=== PATIENT | female | born 1990 | race Two or more races ===

== ENCOUNTER 2021-01-14 14:44 | Emergency (ER) | payer SELFPAY ==
[~2021-01-14] VITALS: Ht 147.3 cm; Wt 69.9 kg
[2021-01-14 15:36] VITALS: BP 114/69
[2021-01-14 15:48] LABS: Urine Bacteria FEW /hpf (None Seen); Urine Blood Negative /uL (Negative); Urine Mucus FEW (None Seen); Urine Specific Gravity 1.016 (1.001-1.035); Urine WBC 9 /hpf (0 - 5)
== END 2021-01-14 16:16 | disposition home or self-care (01) ==
LOC: ER 14:44
DX: N39.0 Urinary tract infection, site not specified (principal); R51.9 Headache, unspecified
CPT/HCPCS: 81001; 81025

== ENCOUNTER 2021-04-07 16:13 | Emergency (ER) | payer MEDICAID ==
[~2021-04-07] VITALS: Ht 157.5 cm; Wt 54.4 kg
[2021-04-07] MEDS ORDERED: SODIUM CHLORIDE 0.9% 1,000 ML IVB ONE (16:30)
[2021-04-07] MEDS ORDERED: ONDANSETRON HCL 4 MG/2 ML VIAL IV ONE (16:30)
[2021-04-07] MEDS ORDERED: MORPHINE SULFATE 4 MG/ML SYR/VIAL IV ONE (16:30)
[2021-04-07 16:58] LABS: Basophils # (auto) 0 10 ^3/uL (0-0.2); Basophils % (auto) 0.5 % (0.0-2.0); Eosinophils # (auto) 0.1 10 ^3/uL (0-0.8); Hemoglobin 10.5 g/dL (12.2-16.2); Lymphocytes # (auto) 1.5 10 ^3/uL (0.4-5.4); Monocytes # (auto) 0.7 10 ^3/uL (0-1.3); Monocytes % (auto) 9.5 % (0.0-12.0)
[2021-04-07 17:00] LABS: Eosinophils % (auto) 0.9 % (0.0-7.0); Hematocrit 31.6 % (36.0-46.0); Lymphocytes % (auto) 20.3 % (10.0-50.0); Mean Corpuscular Hemoglobin 25.2 pg (28.0-32.0); Mean Corpuscular Hgb Conc. 33.3 g/dL (32.0-36.0); Mean Corpuscular Volume 75.6 fL (80.0-100.0); Neutrophils # (auto) 5.1 10 ^3/uL (1.6-8.6); Neutrophils % (auto) 68.8 % (37.0-80.0); Red Blood Cells 4.17 10^6/uL (4.0-5.20); White Blood Cell 7.4 10^3/uL (4.4-10.8)
[2021-04-07 17:03] VITALS: BP 155/56
[2021-04-07 17:07] LABS: Urine Bacteria NONE SEEN /hpf (None Seen); Urine Blood 3+ /uL (Negative); Urine Mucus FEW (None Seen); Urine WBC 41 /hpf (0 - 5)
[2021-04-07] MEDS ORDERED: cefTRIAXone 1GM/50ML D5W 50 ML IV ONE (17:30)
[2021-04-07 17:32] LABS: Albumin 4.1 g/dL (3.4-5.0); Calcium 8.5 mg/dL (8.5-10.1)
[2021-04-07 17:35] LABS: BUN/Creatinine Ratio 16.9; Bilirubin, Total 0.4 mg/dL (0.2-1.0); Total Protein 7.4 g/dL (6.4-8.2)
== END 2021-04-07 18:28 | disposition home or self-care (01) ==
LOC: ER 16:13
DX: N39.0 Urinary tract infection, site not specified (principal); Z32.02 Encounter for pregnancy test, result negative
CPT/HCPCS: 36415; 74176; 80053; 81001; 81025; 83690; 85025; 96361; 96365; 96375; 99284; J0696; J2270; J2405; J7030

== ENCOUNTER 2021-11-28 13:13 | Emergency (ER) | payer MEDICAID ==
[~2021-11-28] VITALS: Ht 154.9 cm; Wt 49.4 kg
[2021-11-28 14:29] LABS: Basophils # (auto) 0.1 10 ^3/uL (0-0.2); Basophils % (auto) 0.8 % (0.0-2.0); Eosinophils # (auto) 0.1 10 ^3/uL (0-0.8); Eosinophils % (auto) 1.1 % (0.0-7.0); Hematocrit 38.1 % (36.0-46.0); Hemoglobin 12.5 g/dL (12.2-16.2); Lymphocytes # (auto) 1.6 10 ^3/uL (0.4-5.4); Lymphocytes % (auto) 25.1 % (10.0-50.0); Mean Corpuscular Hemoglobin 26.4 pg (28.0-32.0); Mean Corpuscular Hgb Conc. 32.8 g/dL (32.0-36.0); Mean Corpuscular Volume 80.5 fL (80.0-100.0); Monocytes # (auto) 0.4 10 ^3/uL (0-1.3); Monocytes % (auto) 6.5 % (0.0-12.0); Neutrophils # (auto) 4.3 10 ^3/uL (1.6-8.6); Neutrophils % (auto) 66.5 % (37.0-80.0); Nucleated Red Blood Cells % 0.1 %; Red Blood Cells 4.74 10^6/uL (4.0-5.20); Red Cell Distribution Width 15.5 % (11.8-14.3); White Blood Cell 6.5 10^3/uL (4.4-10.8)
[2021-11-28 14:41] LABS: Albumin 4.3 g/dL (3.4-5.0); BUN/Creatinine Ratio 29.8; Calcium 9.2 mg/dL (8.5-10.1); Potassium 4.3 mmol/L (3.5-5.1)
[2021-11-28 14:45] LABS: Bilirubin, Total 0.6 mg/dL (0.2-1.0); Total Protein 7.2 g/dL (6.4-8.2)
[2021-11-28] MEDS ORDERED: IOHEXOL 350 MG/ML 100ML IJ ONE (15:19)
[2021-11-28 16:17] VITALS: BP 116/56
[2021-11-28] MEDS ORDERED: AMOX500T86 PO (16:24)
== END 2021-11-28 16:29 | disposition home or self-care (01) ==
LOC: ER 13:13
DX: R09.1 Pleurisy (principal)
CPT/HCPCS: 36415; 71045; 71275; 80053; 83880; 84484; 85025; 99285; Q9967

== ENCOUNTER 2022-03-10 20:17 | Emergency (ER) | payer MEDICAID ==
[~2022-03-10] VITALS: Ht 154.9 cm; Wt 47.6 kg
[2022-03-10 20:17] VITALS: BP 114/68
[~2022-03-10 20:17] MED LIST: AMOX500T86 PO
== END 2022-03-11 01:49 | disposition left against medical advice (07) ==
LOC: ER 20:19
DX: R05.9 Cough, unspecified (principal); J02.9 Acute pharyngitis, unspecified; R50.9 Fever, unspecified; R51.9 Headache, unspecified; M79.10 Myalgia, unspecified site; Z53.21 Procedure and treatment not carried out due to patient leaving prior to being seen by health care provider

== ENCOUNTER 2024-11-23 15:49 | Inpatient (IN) | payer MEDICAID ==
[~2024-11-23] VITALS: Ht 154.9 cm; Wt 50.6 kg
--- NOTE | 2024-11-23 16:46 | ED.PDOC ---
General HPI Comments YANELY: HPI: Poor Historian. 34-year-old female presents to emergency department for persistent UTI symptoms. Patient stated she had these symptoms for at least two weeks ago and was prescribed antibiotics Bactrim which she completed the course three days ago. Patient continues to complain of right flank pain and lower abdominal pain and burning with urination increased in frequency. Patient has history of kidney stones. Pain is constant. No alleviating or precipitating factors. Patient's saw her urologist few days ago and she had an outpatient CT scan of the abdomen and pelvis without contrast today. She brought her CD with her. The CT does not have the report in it but only the images. We are requesting the facility to fax us the report. Initial Vital Signs: Temp : 98.4 BP:122/70 HR: 73 RR:18 SpO2: 99 Past Medical History: UROLITHIASIS Past Surgical History: Gallbladder, , ovarian cyst removal. Social History: Denies smoking, ETOH, or drug use. Medications: DENIES ANY Allergies: NKDA REVIEW OF SYSTEMS: CONSTITUTIONAL: Denies acute: fever, diaphoresis, chills, generalized weakness. HEAD: Denies acute: headache, photophobia Eyes: Denies acute: Double vision, vision loss, eye pain, eye discharge. EARS: Denies acute: tinnitus, hearing loss, ear discharge, ear pain, THROAT: Denies acute: sore throat, swelling, difficulty swallowing , pain with swallowing, change in voice. NECK: Denies acute: neck pain, neck swelling, stiff neck. HEART: Denies acute : chest pain, palpitations, LUNGS: Denies acute: SOB, wheezing, cough, hemoptysis ABDOMEN: Denies acute: Nausea, Vomiting, diarrhea, melena , hematemesis, hematochezia SKIN: Denies acute: rash, redness, lesions, itchiness. EXTREMITIES: Denies acute: calf pain, numbness, tingling, weakness, denies pain in extremity. Denies acute: Low back pain. Neuro: Denies acute: focal neurological deficit, motor or sensory focal neurological deficit, tremors, seizure like activity, confusion, dizziness, change in mental status, loss of bowel or bladder function, cauda equina like symptoms. : Denies acute: , hematuria, PSYCH: Denies acute: hallucination, suicidal ideation, homicidal ideation. FEMALE: Denies acute: abnormal vaginal bleeding, foul odor, unusual discharge. PHYSICAL EXAM: General: no acute distress, awake and alert. Head: normocephalic, atraumatic. Neck: supple, trachea is midline, no swelling. Throat: Normal phonation. Eyes:, no erythema, no purulent discharge, no proptosis, no icterus. Heart: regular rate, regular rhythm, no significant murmur appreciated. Lungs: no apparent respiratory distress, Able to speak in full sentences. No wheezing, no rhonchi, no crackles. No stridors Clear to auscultation bilaterally. Abdomen: Nonspecific right-sided tender to palpation, non distended, soft, no guarding, no rebound, + bowel sounds. Neuro: Awake, Alert, oriented to name, self, situation, follows commands GCS=15. Speech is normal. Skin: no petechia, no purpura, no cyanosis, non-pale, not jaundice. Lower extremities: --no - Pitting edema no deformity, no focal swelling, no calf TTP. Makes eye contact. moves all four extremities. Face: no apparent facial droop. Right CVA tenderness to percussion . Ambulating in the ED independently. ED COURSE: Chief Complaint: Urinary Time Seen by MD: 16:30 Reviewed notes: Nurses Notes, Medications, Allergies Allergies: Coded Allergies: NO KNOWN ALLERGIES (Unverified , 04/07/21) Home Meds Active Scripts Amoxicillin & Pot Clavulanate (Augmentin) 500 Mg Tab, 1 TAB PO BID for 7 Days, #14 TAB Prov:AMBER BRAR MD 11/28/21 Reported Medications Hydralazine Hcl (Hydralazine Hcl) 25 Mg Tab, 25 MG PO for 30 Days, MG 11/24/24 Information Source: Patient Mode of Arrival: Ambulatory Was a procedure done? Was a procedure done?: No Differential Diagnosis Kidney stone (Female): Pyelonephritis, Urinary obstruction, Urolithiasis, Other (Flank Pain;DDX include Nephrolethiasis, obstructive uropathy, kidney cancer, renal infarct, intraabdominal neoplasm, lower lobe pneumonia, retroperitoneal hemorrhage, pancreatitis, aneurysm, dissection, musculoskeletal, rib contusion/trauma, hematoma, PYLONEPHRITIS, muscle strain, spinal disease. IN A FEMALE) Penile/Scrotal: N/A Urinary Problem (Female): Pyelonephritis, Urinary retention, Urolithiasis, UTI, Vaginitis X-Ray, Labs, Meds, VS Vital Signs Date Time Temp Pulse Resp B/P (MAP) Pulse Ox O2 Delivery O2 Flow Rate FiO2 11/23/24 19:40 Room Air* 0 21 11/23/24 19:35 98.3 85 16 125/73 (90) 98 98.3 11/23/24 17:03 98.3 74 16 115/66 (82) 99 98.3 11/23/24 17:03 74 16 99 Room Air* 0 21 11/23/24 16:14 98.4 73 18 122/70 (87) 99 Lab Test 11/23/24 16:30 11/23/24 16:11 Range/Units White Blood Count 7.2 4.4-10.8 10^3/uL Red Blood Count 4.57 4.0-5.20 10^6/uL Hemoglobin 11.8 L 12.2-16.2 g/dL Hematocrit 36.6 36.0-46.0 % Mean Corpuscular Volume 80.0 80.0-100.0 fL Mean Corpuscular Hemoglobin 25.8 L 28.0-32.0 pg Mean Corpuscular Hemoglobin Concent 32.3 32.0-36.0 g/dL Red Cell Distribution Width 14.5 H 11.8-14.3 % Platelet Count 242 140-450 10^3/uL Mean Platelet Volume 9.2 6.9-10.8 fL Neutrophils (%) (Auto) 72.0 37.0-80.0 % Lymphocytes (%) (Auto) 22.4 10.0-50.0 % Monocytes (%) (Auto) 4.4 0.0-12.0 % Eosinophils (%) (Auto) 0.4 0.0-7.0 % Basophils (%) (Auto) 0.8 0.0-2.0 % Neutrophils # (Auto) 5.2 1.6-8.6 10 ^3/uL Lymphocytes # (Auto) 1.6 0.4-5.4 10 ^3/uL Monocytes # (Auto) 0.3 0-1.3 10 ^3/uL Eosinophils # (Auto) 0 0-0.8 10 ^3/uL Basophils # (Auto) 0.1 0-0.2 10 ^3/uL Nucleated Red Blood Cells 0.2 % Sodium Level 140 136-145 mmol/L Potassium Level 3.7 3.5-5.1 mmol/L Chloride Level 105 98-107 mmol/L Carbon Dioxide Level 25 20-31 mmol/L Anion Gap 10 5-15 Blood Urea Nitrogen 10 9-23 mg/dL Creatinine 0.60 0.550-1.02 mg/dL Glomerular Filtration Rate Calc 120 >90 mL/min BUN/Creatinine Ratio 16.7 10.0-20.0 Serum Glucose 92 74-106 mg/dL Lactic Acid Level 0.8 0.4-2.0 mmol/L Calcium Level 10.5 H 8.7-10.4 mg/dL Magnesium Level 2.0 1.6-2.6 mg/dL Total Bilirubin 0.5 0.2-1.0 mg/dL Aspartate Amino Transferase (AST) 9 L 13-40 U/L Alanine Aminotransferase (ALT) 12 7-40 U/L Alkaline Phosphatase 51 46-116 U/L Troponin I High Sensitivity < 3 L </=34 ng/L Total Protein 7.6 5.7-8.2 g/dL Albumin 5.3 H 3.2-4.8 g/dL Lipase 40 12-53 U/L Thyroid Stimulating Hormone (TSH) 0.92 0.55-4.78 uIU/mL Urine Color Colorless Yellow Urine Clarity Clear Clear Urine pH 5.5 5.0-9.0 Urine Specific [place] 1.012 1.001-1.035 Urine Protein Negative Negative Urine Ketones Negative Negative Urine Blood Negative Negative /uL Urine Nitrite Negative Negative Urine Bilirubin Negative Negative Urine Urobilinogen Normal Negative mg/dL Urine Leukocyte Esterase 1+ Negative /uL Urine RBC 1 0 - 4 /hpf Urine Microscopic WBC 5 0-5 /HPF Urine Squamous Epithelial Cells Few <5 /hpf Urine Bacteria Few H None Seen /hpf Urine Glucose Normal Normal mg/dL Urine Test Negative Negative Urine Opiates Screen Neg NEGATIVE Urine Fentanyl Screen Neg NEGATIVE Urine Barbiturates Screen Neg NEGATIVE Urine Phencyclidine Screen Neg NEGATIVE Urine Amphetamines Screen Neg NEGATIVE Urine Benzodiazepines Screen Neg NEGATIVE Urine Cocaine Screen Neg NEGATIVE Urine Cannabinoids Screen Neg NEGATIVE Current Medications Medications (Trade) Dose Ordered Sig/Alex Route Start Time Stop Time Status Last Admin Sodium Chloride 1,000 ml @ 1,000 mls/hr Q1H ONCE IV 11/23/24 16:30 11/23/24 17:29 DC 11/23/24 16:55 Ceftriaxone Sodium 50 ml @ 100 mls/hr ONCE ONCE IV 11/23/24 16:30 11/23/24 16:59 DC 11/23/24 16:55 Acetaminophen/ Hydrocodone Bitart ([place] 5/325MG Tab) 1 tab ONCE ONCE PO 11/23/24 17:00 11/23/24 17:01 DC 11/23/24 17:00 Ketorolac Tromethamine (Toradol Injection) 30 mg ONCE ONCE IV 11/23/24 19:45 11/23/24 19:46 DC 11/23/24 19:54 Pantoprazole Sodium (Protonix Tablet) 40 mg ONCE ONCE PO 11/23/24 20:30 11/23/24 20:31 DC 11/23/24 20:48 Lidocaine HCl (Xylocaine 2% Viscous) 10 ml ONCE ONCE PO 11/23/24 20:30 11/23/24 20:31 DC 11/23/24 20:48 Sucralfate (Carafate Tab) 1 gm ONCE ONCE PO 11/23/24 20:30 11/23/24 20:31 DC 11/23/24 20:48 [place] [id number] Ph: [phone] DIAGNOSTIC IMAGING Diagnostic Imaging Report : [id number] Signed PATIENT: URSZULA [place] ACCT: [id number] UNIT: [id number] : 1990 LOC: OVERFLOW ROOM / BED: [address] [place] [address] / AGE / SEX: 34 / F ADM STATUS: ADM IN SERVICE 25 ORDERING PHYSICIAN: ORIANA DENG DO PROCEDURE(s): ABPLIV - CT AB PEL WITH IV CON ONLY REASON: epig. R flank, abd pain ORDER NUMBER(s): [id number], ACCESSION NUMBER(s): [id number] Exam: CT AB PEL WITH IV CON ONLY History: epig. R flank, abd pain Comparison Study: None Contrast: Type of contrast: Contrast injected: Contrast wasted: 0 TECHNIQUE: Multidetector CT of abdomen and pelvis with IV contrast. Radiation Dose Information: CT Dose: CTDI volume is 5.42 mGy. Dose-length product is 296.06 mGy*cm FINDINGS: Visualized breast tissue is symmetric. Lung bases are clear. Heart size is normal lower esophagus is unremarkable. Spleen, liver, pancreas, kidneys, adrenals are unremarkable. Patient has had a cholecystectomy there is an enlarged and edematous appearing right ovary measures 4.55 by 3.2 cm . Right ovary is dominated by ovarian cyst. There is also large amount of stool in the rectosigmoid no evidence for obstruction.. IMPRESSION: 1. Enlarged right ovary and prominent right ovarian cyst. Follow-up ultrasound examination or MRI examination is suggested further assessment ATED BY: VENANCIO JACKSON MD DICTATED DATE/TIME: 11/23/242305 SIGNED BY: VENANCIO JACKSON MD SIGNED DATE/TIME: 11/23/242305 CC: [place] [id number] Ph: [phone] DIAGNOSTIC IMAGING Diagnostic Imaging Report : [id number] Signed PATIENT: URSZULA [place] ACCT: [id number] UNIT: [id number] : 1990 LOC: OVERFLOW ROOM / BED: [address] [place] [address] AGE / SEX: 34 / F ADM STATUS: ADM IN SERVICE 0050 ORDERING PHYSICIAN: LOUISE COPELAND RESIDENT PROCEDURE(s): PELUS - PELVIC REASON: r/o ovarian torsion ORDER NUMBER(s): [id number], ACCESSION NUMBER(s): [id number] INDICATION: r/o ovarian torsion TECHNIQUE: Multiple real-time grayscale transabdominal sonographic images along with color and duplex Doppler of the uterus and ovaries were obtained. COMPARISON: None FINDINGS: The uterus measures 8.2 X 4.6 X 4.5 cm. The endometrial stripe measures 0.3 cm. Right ovary measures 4.2 X 3.3 X 3.8 cm with normal Doppler color flow. 2.9 X 2.2 X 2.9 CM PROBABLY PHYSIOLOGICAL CYST. Left ovary IS SURGICALLY REMOVED. IMPRESSION: 1. Grossly unremarkable pelvic ultrasound. NO SONOGRAPHIC EVIDENCE OF RIGHT OVARIAN TORSION. ATED BY: DAVE JORDAN MD DICTATED DATE/TIME: 11/24/24199 SIGNED BY: DAVE JORDAN MD SIGNED DATE/TIME: 11/24/24199 CC: Time of 1ST Reevaluation: 17:00 Reevaluation 1ST: Unchanged Patient Education/Counseling: Diagnosis, Treatment Family Education/Counseling: No Family Present Comments Patient presented with the above HPI.---flank pain/abdominal pain/UTI ---workup was initiated. patient was found with the above mentioned diagnosis. the following medications were ordered: please refer to order lists of meds and tests obtained by myself Dr. Deng. Patient ED course and VS have been stabilized. Patient has been reassessed in the ED and remained in a stable condition. Pertinent incidental findings were discussed with the patient and/or family. Patient/family voices understanding and is agreeable with plan. Patient has been observed in the ED adequate length of time to insure improvement/stability. Escalation of care considered: Consideration of escalation to observation or admission Patient was ADMITTED to the medicine team for further evaluation and treatment of their presentation. Who were unable to obtain the CT scan report that she had done prior to arrival to ED today. Patient was consented for a 2nd CT scan with IV contrast. All the reports of any imaging studies that were ordered by myself were reviewed by myself. Departure 1 Departure Time of Disposition: 18:17 Impression: Primary Impression: UTI (urinary tract infection) Additional Impressions: Flank pain Ovarian cyst Disposition: ADMITTED INPATIENT Admit to: Tele Condition: Guarded Discharged With: Self Critical Care Note Critical Care Time?: Yes (45 min-critical care time only) Heart Score Heart Score: Heart Score Response (Comments) Value History N/A 0 EKG N/A 0 Age N/A 0 Risk Factors N/A 0 Troponin N/A 0 Total 0 I personally scribed for ORIANA DENG DO ([email or web address]) on 11/23/24 at 16:46. Electronically submitted by Floresita Shelodn ([email or web address]). I personally scribed for ORIANA DENG DO ([email or web address]) on 11/23/24 at 17:33. Electronically submitted by Floresita Sheldon ([email or web address]). I personally scribed for ORIANA DENG DO ([email or web address]) on 11/23/24 at 17:35. Electronically submitted by Floresita Sheldon ([email or web address]). I personally scribed for ORIANA DENG DO ([email or web address]) on 11/23/24 at 18:21. Electronically submitted by Floresita Sheldon ([email or web address]). I personally scribed for ORIANA DENG DO ([email or web address]) on 11/24/24 at 02:12. El ectronically submitted by Fabian Mata ([email or web address]). I personally scribed for ORIANA DENG DO ([email or web address]) on 11/24/24 at 02:51. Electronically submitted by Fabian Mata ([email or web address]). ORIANA DENG DO Nov 23, 2024 16:46
[2024-11-23] MEDS: SODIUM CHLORIDE 0.9% 1,000 ML IV ONE (16:55)
[2024-11-23] MEDS: cefTRIAXone 1GM/50ML D5W 50 ML IV ONE (16:55)
[2024-11-23] MEDS: HYDROcodone-ACET 5/325MG TAB PO ONE (17:00)
[2024-11-23 17:03] VITALS: PULSE 74; RESP 16; O2SAT 99
[2024-11-23 17:06] LABS: Urine Bacteria FEW /hpf (None Seen); Urine Blood Negative /uL (Negative); Urine Clarity Clear (Clear); Urine Color Colorless (Yellow); Urine Protein, UAD Negative (Negative); Urine Specific Gravity 1.012 (1.001-1.035); Urine Squamous Epithelial Cell FEW /hpf (<5); Urine Urobilinogen Normal (Negative); Urine WBC 5 /HPF (0-5); Urine pH 5.5 (5.0-9.0)
[2024-11-23 18:05] LABS: Basophils # (auto) 0.1 10 ^3/uL (0-0.2); Basophils % (auto) 0.8 % (0.0-2.0); Eosinophils # (auto) 0 10 ^3/uL (0-0.8); Eosinophils % (auto) 0.4 % (0.0-7.0); Hematocrit 36.6 % (36.0-46.0); Hemoglobin 11.8 g/dL (12.2-16.2); Lymphocytes # (auto) 1.6 10 ^3/uL (0.4-5.4); Lymphocytes % (auto) 22.4 % (10.0-50.0); Mean Corpuscular Hemoglobin 25.8 pg (28.0-32.0); Mean Corpuscular Hgb Conc. 32.3 g/dL (32.0-36.0); Monocytes # (auto) 0.3 10 ^3/uL (0-1.3); Monocytes % (auto) 4.4 % (0.0-12.0); Neutrophils # (auto) 5.2 10 ^3/uL (1.6-8.6); Nucleated Red Blood Cells % 0.2 %; Platelet Count (auto) 242 10^3/uL (140-450); Red Blood Cells 4.57 10^6/uL (4.0-5.20); Red Cell Distribution Width 14.5 % (11.8-14.3); White Blood Cell 7.2 10^3/uL (4.4-10.8)
[2024-11-23 18:21] LABS: Alanine Aminotransferase 12 U/L (7-40); Alkaline Phosphatase 51 U/L (46-116); Anion Gap 10 (5-15); BUN/Creatinine Ratio 16.7 (10.0-20.0); Bilirubin, Total 0.5 mg/dL (0.2-1.0); Blood Urea Nitrogen 10 mg/dL (9-23); Carbon Dioxide 25 mmol/L (20-31); Chloride 105 mmol/L (98-107); Glucose 92 mg/dL (74-106); Lipase 40 U/L (12-53); Potassium 3.7 mmol/L (3.5-5.1); Sodium 140 mmol/L (136-145); Total Protein 7.6 g/dL (5.7-8.2)
[2024-11-23 18:26] LABS: Albumin 5.3 g/dL (3.2-4.8); Aspartate Aminotransferase 9 U/L (13-40); Calcium 10.5 mg/dL (8.7-10.4)
[2024-11-23] MEDS: KETOROLAC TROMETH 30 MG/ML 1ML VIAL IV ONE (19:54)
[2024-11-23] MEDS: PANTOPRAZOLE 40 MG TAB PO ONE (20:48)
[2024-11-23] MEDS: SUCRALFATE 1 GM TAB PO ONE (20:48)
[2024-11-23] MEDS: LIDOCAINE VISCOUS 2% 15ML UD PO ONE (20:48)
[2024-11-23] MEDS ORDERED: MORPHINE SULFATE INJ 2 MG/ml SYRG IV PRN (22:15)
[2024-11-23] MEDS: IOHEXOL 300 MG/ML 100ML BOTTLE IJ ONE (22:16)
[2024-11-23 22:43] LABS: Opiate Scree,Urine Neg (NEGATIVE)
[2024-11-23 22:44] LABS: Amphetamine Screen, Urine Neg (NEGATIVE); Barbiturate Scree,Urine Neg (NEGATIVE); Benzodiazephine Screen, Urine Neg (NEGATIVE); Cannabinoid Screen, Urine Neg (NEGATIVE); Cocaine Screen, Urine Neg (NEGATIVE); Phencyclidine Screen, Urine Neg (NEGATIVE)
--- NOTE | 2024-11-23 23:10 | DVH ---
Exam: CT AB PEL WITH IV CON ONLY History: epig. R flank, abd pain Comparison Study: None Contrast: Type of contrast: Contrast injected: Contrast wasted: 0 TECHNIQUE: Multidetector CT of abdomen and pelvis with IV contrast. Radiation Dose Information: CT Dose: CTDI volume is 5.42 mGy. Dose-length product is 296.06 mGy*cm FINDINGS: Visualized breast tissue is symmetric. Lung bases are clear. Heart size is normal lower esophagus is unremarkable. Spleen, liver, pancreas, kidneys, adrenals are unremarkable. Patient has had a cholecystectomy there is an enlarged and edematous appearing right ovary measures 4 .55 by 3.2 cm . Right ovary is dominated by ovarian cyst. There is also large amount of stool in the rectosigmoid no evidence for obstruction.. IMPRESSION: 1. Enlarged right ovary and prominent right ovarian cyst. Follow-up ultrasound examination or MRI exa mination is suggested further assessment
[2024-11-23 23:38] VITALS: BP 112/74; PULSE 68; PULSE 74; RESP 18; TEMP 98; O2SAT 94; O2SAT 98
[2024-11-24] MEDS ORDERED: HYDR25TA88 PO (00:37)
[2024-11-24] MEDS: MORPHINE SULFATE INJ 2 MG/ml SYRG IV ONE (00:49)
--- NOTE | 2024-11-24 00:59 | DVHHPRES ---
History of Present Illness Resident Creating Document: LOUISE COPELAND RESIDENT History of Present Illness URSZULA [place] is a 34-year-old female with a PMH of anxiety, nephrolithiasis, recurrent UTIs presented to the ED with the chief complaints of dysuria and lower abdominal pain. Patient reported she started having dysuria suprapubic pain 2 weeks back and then she went to urgent care, given Bactrim for 10 days patient recently finished 10 days of Bactrim course but her symptoms is getting worse no pain is radiating to sites (bilateral flanks) with 1 episode of fever, dysuria, mild nausea which prompted her to visit ED. on my assessment patient denies chest pain shortness of breath hematuria palpitations diaphoresis recent sick contacts, recent travel and other symptoms. Patient reported she has been having recurrent UTIs for past 3 years. PMH: Anxiety, nephrolithiasis, recurrent UTIs PSH: Cholecystectomy, , ovarian cyst removal Family history: Reviewed, noncontributory Social history: Lives with father. Denies smoking, alcohol and other drug abuse Allergies: No known allergies Med home medications: Hydroxyzine for anxiety Review of Systems Constitutional: Yes: Malaise Eyes: No: Pain, Vision change, Conjunctivae inflammation, Eyelid inflammation, Other, Redness ENT: No: Ear pain, Ear discharge, Nose pain, Nose discharge, Nose congestion, Mouth pain, Mouth swelling, Throat pain, Throat swelling, Other Respiratory: No: Cough, Dry, Shortness of breath, SOB with excertion, Wheezing, Hemoptysis, Pleuritic Pain, Sputum, Wheezing, Other Gastrointestinal: Abdominal Pain Genitourinary: Dysuria, Frequency, Other (Suprapubic, flank, back pain) Musculoskeletal: No: other, neck pain, shoulder pain, arm pain, back pain, hand pain, leg pain, foot pain Skin: No: Rash, Lesions, Jaundice, Bruising, Other Neurological: No: Weakness, Numbness, Incoordination, Change in speech, Confusion, Seizures, Other Allergies: Coded Allergies: NO KNOWN ALLERGIES (Unverified , 04/07/21) Medications Current Medications Medications Dose Ordered Sig/Alex Route Start Time Stop Time Status Last Admin Dose Admin Sodium Chloride 10 ml Q8HR IV 11/24/24 06:00 Acetaminophen 650 mg Q6HP PRN PO 11/23/24 22:15 Morphine Sulfate 2 mg Q4HPRN PRN IV 11/23/24 22:15 Ceftriaxone Sodium 50 ml @ 100 mls/hr DAILY@09 IV 11/24/24 09:00 Exam Vital Signs Vital Signs Date Time Temp Pulse Resp B/P (MAP) Pulse Ox O2 Delivery O2 Flow Rate FiO2 11/24/24 00:49 74 20 117/74 11/23/24 23:38 94 Room Air* 0 21 11/23/24 23:38 98.0 98.0 Exam General Appearance: Alert, Oriented X3, Cooperative, moderate distress due to pain HEENT: Atraumatic, Mucous membranes moist/pink Respiratory: Clear to auscultation, Normal air movement, No added sounds Cardiovascular: Regular rate, Normal S1, Normal S2, No murmurs Abdominal: Suprapubic tenderness, bilateral flank tenderness right >> left. Active bowel sounds, Soft, no distention Extremities: No edema, Normal pulses, No tenderness/swelling Skin: No Significant rash, except past surgical scars Neuro: Normal speech, sensorimotor deficits none Psych/Mental Status: Mental status NL, Mood NL, anxious Nurse was there as sharperone during examination Labs/Xrays Labs Test 11/23/24 16:30 11/23/24 16:11 Range/Units White Blood Count 7.2 4.4-10.8 10^3/uL Red Blood Count 4.57 4.0-5.20 10^6/uL Hemoglobin 11.8 L 12.2-16.2 g/dL Hematocrit 36.6 36.0-46.0 % Mean Corpuscular Volume 80.0 80.0-100.0 fL Mean Corpuscular Hemoglobin 25.8 L 28.0-32.0 pg Mean Corpuscular Hemoglobin Concent 32.3 32.0-36.0 g/dL Red Cell Distribution Width 14.5 H 11.8-14.3 % Platelet Count 242 140-450 10^3/uL Mean Platelet Volume 9.2 6.9-10.8 fL Neutrophils (%) (Auto) 72.0 37.0-80.0 % Lymphocytes (%) (Auto) 22.4 10.0-50.0 % Monocytes (%) (Auto) 4.4 0.0-12.0 % Eosinophils (%) (Auto) 0.4 0.0-7.0 % Basophils (%) (Auto) 0.8 0.0-2.0 % Neutrophils # (Auto) 5.2 1.6-8.6 10 ^3/uL Lymphocytes # (Auto) 1.6 0.4-5.4 10 ^3/uL Monocytes # (Auto) 0.3 0-1.3 10 ^3/uL Eosinophils # (Auto) 0 0-0.8 10 ^3/uL Basophils # (Auto) 0.1 0-0.2 10 ^3/uL Nucleated Red Blood Cells 0.2 % Sodium Level 140 136-145 mmol/L Potassium Level 3.7 3.5-5.1 mmol/L Chloride Level 105 98-107 mmol/L Carbon Dioxide Level 25 20-31 mmol/L Anion Gap 10 5-15 Blood Urea Nitrogen 10 9-23 mg/dL Creatinine 0.60 0.550-1.02 mg/dL Glomerular Filtration Rate Calc 120 >90 mL/min BUN/Creatinine Ratio 16.7 10.0-20.0 Serum Glucose 92 74-106 mg/dL Lactic Acid Level 0.8 0.4-2.0 mmol/L Calcium Level 10.5 H 8.7-10.4 mg/dL Magnesium Level 2.0 1.6-2.6 mg/dL Total Bilirubin 0.5 0.2-1.0 mg/dL Aspartate Amino Transferase (AST) 9 L 13-40 U/L Alanine Aminotransferase (ALT) 12 7-40 U/L Alkaline Phosphatase 51 46-116 U/L Troponin I High Sensitivity < 3 L </=34 ng/L Total Protein 7.6 5.7-8.2 g/dL Albumin 5.3 H 3.2-4.8 g/dL Lipase 40 12-53 U/L Thyroid Stimulating Hormone (TSH) 0.92 0.55-4.78 uIU/mL Urine Color Colorless Yellow Urine Clarity Clear Clear Urine pH 5.5 5.0-9.0 Urine Specific [place] 1.012 1.001-1.035 Urine Protein Negative Negative Urine Ketones Negative Negative Urine Blood Negative Negative /uL Urine Nitrite Negative Negative Urine Bilirubin Negative Negative Urine Urobilinogen Normal Negative mg/dL Urine Leukocyte Esterase 1+ Negative /uL Urine RBC 1 0 - 4 /hpf Urine Microscopic WBC 5 0-5 /HPF Urine Squamous Epithelial Cells Few <5 /hpf Urine Bacteria Few H None Seen /hpf Urine Glucose Normal Normal mg/dL Urine Test Negative Negative Urine Opiates Screen Neg NEGATIVE Urine Fentanyl Screen Neg NEGATIVE Urine Barbiturates Screen Neg NEGATIVE Urine Phencyclidine Screen Neg NEGATIVE Urine Amphetamines Screen Neg NEGATIVE Urine Benzodiazepines Screen Neg NEGATIVE Urine Cocaine Screen Neg NEGATIVE Urine Cannabinoids Screen Neg NEGATIVE Assessment/Plan Assessment/Plan # Acute complicated UTI # possible pyelonephritis - evident on urinalysis - ordered urine bacterial culture - currently giving Rocephin - ordered CT abdominal pelvis # right ovarian cyst # rule out ovarian torsion -ordered pelvic ultrasound -evident on CT which showed enlarged right ovary and prominent right ovarian cyst -consulted OBGYN PUD PPX: Not indicated VTE PPX: Patient is ambulatory Diet: Regular diet Goals of care discussed with the patient for more than 29 minutes: Full code status Case discussed with Dr. Perla, patient and nurse Plan discussed with: Patient My Orders Orders - LOUISE COPELAND RESIDENT Procedure Category Date Status Time Admit ADMIT 11/23/24 Transmitted 22:03 Allergies NIKOLAS 11/23/24 In Process 22:03 Code Status CODE 11/23/24 Transmitted 22:03 Sodium Chloride Lock PHA 11/24/24 In Process (Saline Lock Ns) 06:00 Complete Blood Count LAB 11/24/24 Logged 04:00 Comprehensive LAB 11/24/24 Logged Metabolic Panel 04:00 Condition: Stable NIKOLAS 11/23/24 In Process 22:03 Acetaminophen Tablet PHA 11/23/24 In Process (Tylenol Tablet) 22:15 Morphine Sulfate PHA 11/23/24 In Process Injection 22:15 Covid19 Antigen [facility] 11/23/24 Logged Rapid Influenza A&B LAB 11/23/24 Logged 22:03 Ceftriaxone 1gm/50ml PHA 11/24/24 In Process D5w (Rocephin) 09:00 Pelvic US 11/24/24 Logged 00:50 * [employer] Consultation CONS 11/24/24 Transmitted 00:50 Date of Service: Nov 23, 2024 Billing Provider: LIS PERLA MD Common Visit Codes: 38949-[id number] INP/OBS CARE (HIGH) LOUISE COPELAND RESIDENT Nov 24, 2024 00:59 LIS PERLA MD Nov 24, 2024 09:20
--- NOTE | 2024-11-24 02:02 | DVH ---
INDICATION: r/o ovarian torsion TECHNIQUE: Multiple real-time grayscale transabdominal sonographic images along with color and duplex Doppler of the uterus and ovaries were obtained. COMPARISON: None FINDINGS: The uterus measures 8.2 X 4.6 X 4.5 cm. The endometrial stripe measures 0.3 cm. Right ovary measures 4.2 X 3.3 X 3.8 cm with normal Doppler color flow. 2.9 X 2.2 X 2.9 CM PROBABLY P HYSIOLOGICAL CYST. Left ovary IS SURGICALLY REMOVED. IMPRESSION: 1. Grossly unremarkable pelvic ultrasound. NO SONOGRAPHIC EVIDENCE OF RIGHT OVARIAN TORSION.
[2024-11-24 04:20] LABS: Alanine Aminotransferase 12 U/L (7-40); Albumin 4.5 g/dL (3.2-4.8); Alkaline Phosphatase 47 U/L (46-116); Anion Gap 11 (5-15); BUN/Creatinine Ratio 17.2 (10.0-20.0); Basophils # (auto) 0 10 ^3/uL (0-0.2); Bilirubin, Total 0.4 mg/dL (0.2-1.0); Blood Urea Nitrogen 10 mg/dL (9-23); Calcium 10.2 mg/dL (8.7-10.4); Carbon Dioxide 23 mmol/L (20-31); Chloride 106 mmol/L (98-107); Eosinophils # (auto) 0 10 ^3/uL (0-0.8); Hemoglobin 10.9 g/dL (12.2-16.2); Monocytes # (auto) 0.5 10 ^3/uL (0-1.3); Monocytes % (auto) 5.7 % (0.0-12.0); Neutrophils # (auto) 5.4 10 ^3/uL (1.6-8.6); Nucleated Red Blood Cells % 0.1 %; Potassium 4.3 mmol/L (3.5-5.1); Sodium 140 mmol/L (136-145); Total Protein 6.3 g/dL (5.7-8.2)
[2024-11-24 04:23] LABS: Basophils % (auto) 0.6 % (0.0-2.0); Eosinophils % (auto) 0.5 % (0.0-7.0); Hematocrit 33.7 % (36.0-46.0); Mean Corpuscular Hemoglobin 25.9 pg (28.0-32.0); Mean Corpuscular Hgb Conc. 32.4 g/dL (32.0-36.0); Neutrophils % (auto) 68.2 % (37.0-80.0); Platelet Count (auto) 210 10^3/uL (140-450); Red Blood Cells 4.22 10^6/uL (4.0-5.20); Red Cell Distribution Width 14.8 % (11.8-14.3)
[2024-11-24 04:28] LABS: Aspartate Aminotransferase < 8 U/L (13-40); Glucose 116 mg/dL (74-106)
[2024-11-24] MEDS: SODIUM CHLOR 0.9% PF (SALINE LOCK) 10ML VIAL/SYR IV SCH (05:51)
[2024-11-24 08:54] VITALS: BP 105/69; PULSE 62; RESP 14; TEMP 97.9; O2SAT 98
[2024-11-24] MEDS: cefTRIAXone 1GM/50ML D5W 50 ML IV SCH (09:57)
[2024-11-24] MEDS: SODIUM CHLORIDE 0.9% 1,000 ML IV SCH (09:58)
--- NOTE | 2024-11-24 11:03 | DVHINCON2 ---
Date of service: Nov 24, 2024 Reason for Consultation Right ovarian cyst and abdominal pain History of Present Illness History Source: Patient Exam Limitations: No limitations HPI Anson Long is a 34 y/o female patient with a history of anxiety, right ovarian cyst, and bilateral renal stones, who presented to the ED after two weeks of abdominal pain and urinary symptoms, including urgency, frequency, burning sensation during urination, back and lower abdominal pain radiated to the right lower extremity. The patient reports she presented to the ER two weeks ago for the same symptoms. She was diagnosed with UTI and was started on Bactri m, however symptoms did not improved. She denies current vaginal secretion, fever, vomiting, diarrhea, or dizziness. However, reports intermittent vaginal itchiness and secretion. LPM: 11/12/24. No heavy bleeding or cramps, and lasted 7 days. No sexual partner at the moment. No control. due to distress. Home Meds Active Scripts Amoxicillin & Pot Clavulanate (Augmentin) 500 Mg Tab, 1 TAB PO BID for 7 Days, #14 TAB Prov:AMBER BRAR MD 11/28/21 Reported Medications Hydralazine Hcl (Hydralazine Hcl) 25 Mg Tab, 25 MG PO for 30 Days, MG 11/24/24 Current Meds Xanax as needed for anxiety Hydroxyzine as needed for anxiety Chief Complaint of Abdominal/F: Abdominal pain, Left flank pain, Right flank pain Onset/Duration of Abd/Flank Pa: Waxing, Waning Quality of Abd/Flank Pain: Aching, Sharpness Location of Abdominal Onset: RUQ, RLQ, Epigastric, Generalized abdomen Abdominal Pain Radiation: Groin, Back Activities of Onset of Abd/Fla: None Associated Symptoms of Abd/Fla: Back pain, Chills Timing of Abdominal Pain: Still present Timing/Duration of Back Pain: Week, Intermittent, > 1 Month Quality of Back Pain: Aching Past Medical History Cardiac: No pertinent Hx Pulmonary: No pertinent Hx Central Nervous System: No pertinent Hx GI: No pertinent Hx Hemotology/Oncology: No pertinent Hx Hepatobiliary: No pertinent Hx Psychiatric: Anxiety Musculoskeletal: No pertinent Hx Rheumotologic: No pertinent Hx Infectious Disease: No peritnent Hx ENT: No pertinent Hx Renal/: UTI Endocrine: No pertinent Hx Dermatology: No pertinent Hx Past Surgical History: Cholecystectomy, , Other (Lt oophorectomy due to ovarian cysts) Family History: No pertinent Hx Patient Family History: Patient reports no known family medical history. Smoker: No Hx (Negative) Alocohol: None Drugs: None Domestic Violence: Neg Review of Systems Constitutional: Chills, Malaise Ears, Nose, & Throat: No symptom reported Eyes: No symptom reported Pulmonary/Respiratory: No symptom reported Cardiovascular: No symptom reported Gastrointestinal: Abdominal Pain Genitourinary: Dysuria, Frequency, Urgency, Pain Musculoskeletal: Back pain, Leg pain Skin: No symptom reported Psychiatric: Anxiety Endocrine: No symptom reported Hemotologic/Lymphatic: No symptom reported H&P Exam Vital Signs Vital Signs Date Time Temp Pulse Resp B/P (MAP) Pulse Ox O2 Delivery O2 Flow Rate FiO2 11/24/24 08:54 97.9 62 14 105/69 (81) 98 97.9 11/23/24 23:38 Room Air* 0 21 General Appeara: Well developed, Well nourished, Normal Appearance Head Exam: Normal inspection Neck Exam: Normal inspection, Non-tender, Normal alignment Eye Exam: bilateral eye Normal inspection, bilateral eye PERRL, bilateral eye EOMI Ear Exam: bilateral ear Auricle normal, bilateral ear Canal normal, bilateral ear TM normal Nasal Exam: Normal inspection Mouth: Normal Inspection Pulmonary/Respiratory: Normal inspection, Normal breath sounds, Chest non-tend er, Lungs clear Cardiovascular/Chest: Normal inspection, Regular rate, Normal Rhythm Abdominal Exam: Normal bowel sounds, Soft, No hepatospenomegaly, No masses Abdominal Pain Onset Location: RUQ, RLQ, Epigastric, Generalized abdomen Rectal Exam: Deferred Back Exam: Other (Right lumbar pain ) Pelvic Exam: Not done (Patient declined pelvic exam) Male Genital Exam: Other (N/A) Shoulder Exam: Normal inspection, Non-tender, Normal ROM Elbow/Forearm Exam: Normal inspection, Non-tender, Normal ROM Wrist Exam: Normal inspection, Non-tender, Normal ROM Hand Exam: Normal inspection, Non-tender, Normal ROM Hip exam: Normal inspection, Non-tender, Normal range of motion Legs: bilateral leg non-tender, bilateral leg normal inspection, bilateral leg normal range of motion, bilateral leg no evidence of injury Knees: bilateral knee non-tender, bilateral knee normal inspection, bilateral knee normal range of motion, bilateral knee no evidence of injury Ankle Exam: bilateral ankle Normal inspection, bilateral ankle Non-tender, bilateral ankle Normal range of motion, bilateral ankle No evidence of injury Foot: bilateral foot non-tender, bilateral foot normal inspection, bilateral foot normal range of motion, bilateral foot no evidence of injury Tendon/ Neuro: Normal sensation, Normal motor function, Normal tendon functions 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 Exam: Normal hearing, Normal speech, PERRL Motor/Sensory: Normal sensory function, Normal motor function, Negative Babinski's sign Deep Tendon Ref: All intact Neuro/Mental St: Alert, Oriented Appearance: Appropriate appearance, Appropriate insight Eye contact/ Speech: Cooperative, Good eye contact, Normal speech Coordination/Gait: Normal finger->nose, Normal gait, Negative Romberg's sign Skin Exam: Normal inspection, Normal color, Warm/dry Lymphatic: Normal inspection Labs/Xrays Labs Test 11/24/24 03:40 11/23/24 16:30 11/23/24 16:11 Range/Units White Blood Count 8.0 4.4-10.8 10^3/uL Red Blood Count 4.22 4.0-5.20 10^6/uL Hemoglobin 10.9 L 12.2-16.2 g/dL Hematocrit 33.7 L 36.0-46.0 % Mean Corpuscular Volume 80.0 80.0-100.0 fL Mean Corpuscular Hemoglobin 25.9 L 28.0-32.0 pg Mean Corpuscular Hemoglobin Concent 32.4 32.0-36.0 g/dL Red Cell Distribution Width 14.8 H 11.8-14.3 % Platelet Count 210 140-450 10^3/uL Mean Platelet Volume 9.1 6.9-10.8 fL Neutrophils (%) (Auto) 68.2 37.0-80.0 % Lymphocytes (%) (Auto) 25.0 10.0-50.0 % Monocytes (%) (Auto) 5.7 0.0-12.0 % Eosinophils (%) (Auto) 0.5 0.0-7.0 % Basophils (%) (Auto) 0.6 0.0-2.0 % Neutrophils # (Auto) 5.4 1.6-8.6 10 ^3/uL Lymphocytes # (Auto) 2.0 0.4-5.4 10 ^3/uL Monocytes # (Auto) 0.5 0-1.3 10 ^3/uL Eosinophils # (Auto) 0 0-0.8 10 ^3/uL Basophils # (Auto) 0 0-0.2 10 ^3/uL Nucleated Red Blood Cells 0.1 % Sodium Level 140 136-145 mmol/L Potassium Level 4.3 3.5-5.1 mmol/L Chloride Level 106 98-107 mmol/L Carbon Dioxide Level 23 20-31 mmol/L Anion Gap 11 5-15 Blood Urea Nitrogen 10 9-23 mg/dL Creatinine 0.58 0.550-1.02 mg/dL Glomerular Filtration Rate Calc 121 >90 mL/min BUN/Creatinine Ratio 17.2 10.0-20.0 Serum Glucose 116 H 74-106 mg/dL Calcium Level 10.2 8.7-10.4 mg/dL Total Bilirubin 0.4 0.2-1.0 mg/dL Aspartate Amino Transferase (AST) < 8 L 13-40 U/L Alanine Aminotransferase (ALT) 12 7-40 U/L Alkaline Phosphatase 47 46-116 U/L Total Protein 6.3 5.7-8.2 g/dL Albumin 4.5 3.2-4.8 g/dL Lactic Acid Level 0.8 0.4-2.0 mmol/L Magnesium Level 2.0 1.6-2.6 mg/dL Troponin I High Sensitivity < 3 L </=34 ng/L Lipase 40 12-53 U/L Thyroid Stimulating Hormone (TSH) 0.92 0.55-4.78 uIU/mL Urine Color Colorless Yellow Urine Clarity Clear Clear Urine pH 5.5 5.0-9.0 Urine Specific [place] 1.012 1.001-1.035 Urine Protein Negative Negative Urine Ketones Negative Negative Urine Blood Negative Negative /uL Urine Nitrite Negative Negative Urine Bilirubin Negative Negative Urine Urobilinogen Normal Negative mg/dL Urine Leukocyte Esterase 1+ Negative /uL Urine RBC 1 0 - 4 /hpf Urine Microscopic WBC 5 0-5 /HPF Urine Squamous Epithelial Cells Few <5 /hpf Urine Bacteria Few H None Seen /hpf Urine Glucose Normal Normal mg/dL Urine Test Negative Negative Urine Opiates Screen Neg NEGATIVE Urine Fentanyl Screen Neg NEGATIVE Urine Barbiturates Screen Neg NEGATIVE Urine Phencyclidine Screen Neg NEGATIVE Urine Amphetamines Screen Neg NEGATIVE Urine Benzodiazepines Screen Neg NEGATIVE Urine Cocaine Screen Neg NEGATIVE Urine Cannabinoids Screen Neg NEGATIVE Microbiology Date/Time Source Procedure Growth Status 11/23/24 16:11 Voided Urine Urine Culture - Preliminary Resulted Assessment/Plan Primary Diagnosis 1. Simple right ovarian cyst 2.9 cm (physiologic), no evidence of torsion 2. Acute on chronic abdominal pain most likely due to kidney stones 3. Lower urinary tract symptoms with normal culture, doubt UTI 4. Hx of Lt oophorectomy for ovarian cyst (pathology unknown) Plan -No acute Measurement Advisor intervention indicated at this time -Routine outpatient follow-up for pelvic exam and PAP - NSAID prn for ovulatory pain, functional cysts do not require treatment, but OCP's can be considered for ovarian cyst prevention IP ATTORNEY will sign off Thank you for allowing us to participate in the care of this patient. Plan discussed with: Patient Date of Service: Nov 24, 2024 Billing Provider: EL LOPES DO Common Visit Codes: CONSULT ONLY Consultation Codes: [id number] CONSULT <60MIN EL LOPES DO Nov 24, 2024 11:03
[2024-11-24 12:08] VITALS: BP 103/64; PULSE 62; RESP 14; TEMP 97.9; O2SAT 99
[2024-11-24 13:56] LABS: Rapid Influenza A Negative (Negative)
[2024-11-24 13:57] LABS: COVID19 ANTIGEN SOFIA FIA NEGATIVE (NEGATIVE); Rapid Influenza B Negative (Negative)
[2024-11-24] MEDS: MAALOX PLUS or MAALOX 30 ML PO ONE (14:45)
[2024-11-24 15:09] VITALS: BP 113/68; PULSE 63; RESP 17; TEMP 97.7; O2SAT 100
[2024-11-24 16:53] VITALS: BP 123/77; PULSE 76; RESP 19; TEMP 98; O2SAT 99
--- NOTE | 2024-11-24 17:32 | DVHPNRES ---
Progress Note Date Seen: Nov 24, 2024 Resident Creating Document: STACEY IQBAL RESIDENT Medical Necessity Reason Pt with a Central, PICC or Fol: No Subjective Review of Systems Patient is a 34-year-old female with past medical history of fibromyalgia who came in due to dysuria. According to the patient, for the last 3 weeks she has been having dysuria and right flank pain which he describes as intermittent, sharp and 7/10. She localizes the pain at the time of my evaluation to midepigastric region with radiation to the right flank and right thigh. Patient also notes having recurrent UTIs in the past. Patient's last menstrual period was 11/12/2024, patient notes that she is currently not sexually active, last sexual activity was in 2017. Of note, patient states having palpitations and recently had a rn cardiac placed for 1 week by [facility], the results of which patient is not aware of. Past surgical history: , left ovarian cyst removal, cholecystectomy 3 months ago Home medications: None Social & Personal history: Patient is . Lives with her father. Denies smoking, denies using alcohol, denies using drugs. Allergies: Denies Patient seen and examined at bedside. Patient is alert and oriented to time, place person and responding to all questions. General: Fatigue, fever, chills Eyes: No Pain, No Vision change, No Conjunctivae inflammation, No Eyelid inflammation, No Other, No Redness ENT: No Ear pain, No Ear discharge, No Nose pain, No Nose discharge, No Nose congestion, No Mouth pain, No Mouth swelling, No Throat pain, No Throat swelling, No Other Cardiovascular: No Chest Pain, Palpitations, No Orthopnea, No Paroxysmal No Dyspnea, No Edema, No Lt Headedness, No Other Respiratory: No Cough, No Dry, Shortness of breath, No SOB with exertion, No Wheezing, No Hemoptysis, No Pleuritic Pain, No Sputum, No Other Gastrointestinal: Nausea, No Vomiting, No Abdominal Pain, No Diarrhea, No Constipation, No Melena, No Hematochezia, No Other Genitourinary: Dysuria, No Frequency, No Incontinence, No Hematuria, No Retention, No Other Musculoskeletal: No other, No neck pain, No shoulder pain, No arm pain, No back pain, No hand pain, No leg pain, No foot pain Skin: No Rash, No Lesions, No Jaundice, No Bruising, No Other Objective vital signs Vital Sign Date Time Temp Pulse Resp B/P (MAP) Pulse Ox O2 Delivery O2 Flow Rate FiO2 11/24/24 16:53 98.0 76 19 123/77 (92) 99 98.0 11/23/24 23:38 Room Air* 0 21 medications Current Medications Medications Dose Ordered Sig/Alex Route Start Time Stop Time Status Last Admin Dose Admin Sodium Chloride 10 ml Q8HR IV 11/24/24 06:00 11/24/24 05:51 10 ML Acetaminophen 650 mg Q6HP PRN PO 11/23/24 22:15 Ceftriaxone Sodium 50 ml @ 100 mls/hr DAILY@09 IV 11/24/24 09:00 11/24/24 09:57 100 MLS/HR Sodium Chloride 1,000 ml @ 75 mls/hr [id number] IV 11/24/24 07:00 11/24/24 09:58 75 MLS/HR Examination General Appearance: Cooperative. Well developed. Well nourished. In mild distress, having severe chills at the time of my assessment Head Exam: Normal inspection Neck Exam: Normal inspection. Non-tender. Normal alignment Pulmonary/Respiratory: Chest non-tender. Clear bilateral breath sounds, no crackles, no wheezing. Cardiovascular/Chest: Regular rate and rhythm. No murmurs. No JVD. Peripheral Pulses: 2+ Radial (R). 2+ Radial (L). 2+ Pedal (R). 2+ Pedal (L) Abdominal Exam: Normal bowel sounds. Soft. Right costovertebral angle tenderness, mid epigastric tenderness to palpation, no visible veins, Nontender. No hepatospenomegaly. No masses Ankle Exam: Negative ankle edema Lower extremities: Negative lower extremity edema Neuro/Mental Status: A&O x4. Coherent. Thoughts/Psych: Normal thought pattern. Appropriate mood and affect. Good judgement and insight Skin Exam: Normal inspection. Normal color. Warm. Dry laboratory and microbiology Laboratory Tests 11/24/24 03:40 Test 11/24/24 03:40 Range/Units Serum Glucose 116 H 74-106 mg/dL Microbiology Date/Time Source Procedure Growth Status 11/23/24 16:11 Voided Urine Urine Culture - Preliminary Resulted Labs and/or images reviewed: Labs reviewed by me, Image(s) reviewed by me Problem List/Assessment/Plan Problem List/Assessment/Plan Acute pyelonephritis Ruled out ovarian torsion - CT abdomen pelvis: Enlarged right ovary and prominent right ovarian cyst. Follow up ultrasound examination and MRI examination suggested for further assessment. - pelvic USG: Grossly unremarkable pelvic ultrasound. No sonographic evidence of right ovarian torsion. - IV NS at 75 cc/hour -IV ceftriaxone daily -acetaminophen 650 mg as needed for pain - ordered chlamydia and gonorrhea testing Right-sided ovarian cyst - hardwood sawyer on board - likely simple physiologic cyst Palpitations, arrhythmia workup pending at [facility]? - patient refused to wear quality assurance monitor body Goals of care: Full code, discussed for >16 minutes on 11/24/2024 Plan discussed with patient Plan discussed with Dr. Martinez Plan discussed with: Patient, Other (RN) My Orders My Orders Orders - STACEY IQBAL RESIDENT Procedure Category Date Status Time Clear Liq Diet DIET 11/24/24 Transmitted Dinner Drug Screen LAB 11/24/24 Logged 14:06 Chlamydia/Gc LAB 11/24/24 Logged Amplification 14:31 Transfer Orders XFER 11/24/24 Transmitted 14:31 Date of Service: Nov 24, 2024 Billing Provider: LACEY MARTINEZ MD Common Visit Codes: [id number] INP/OBS CARE(HIGH) STACEY IQBAL Nov 24, 2024 17:32 LACEY MARTINEZ MD Nov 28, 2024 15:55
[2024-11-24 20:00] VITALS: PULSE 73; RESP 17; O2SAT 98
[2024-11-24 21:00] VITALS: BP 98/60; PULSE 73; RESP 17; TEMP 98.2; O2SAT 98
[2024-11-24] MEDS: ACETAMINOPHEN 325 MG TAB PO PRN (22:22)
[2024-11-25] VITALS (8 sets, daily range): BP systolic 92–116; BP diastolic 42–74; PULSE 62–90; RESP 17–20; TEMP 97.9–98.6; O2SAT 97–100
[2024-11-25] MEDS: MORPHINE SULFATE INJ 2 MG/ml SYRG IV ONE (00:07)
[2024-11-25] MEDS: PANTOPRAZOLE 40 MG TAB PO ONE (00:08)
[2024-11-25 06:28] LABS: Eosinophils # (auto) 0.1 10 ^3/uL (0-0.8); Lymphocytes # (auto) 2.1 10 ^3/uL (0.4-5.4); Neutrophils # (auto) 3.1 10 ^3/uL (1.6-8.6); White Blood Cell 5.8 10^3/uL (4.4-10.8)
[2024-11-25 06:31] LABS: Basophils # (auto) 0.1 10 ^3/uL (0-0.2); Eosinophils % (auto) 1.5 % (0.0-7.0); Hematocrit 29.5 % (36.0-46.0); Hemoglobin 9.6 g/dL (12.2-16.2); Lymphocytes % (auto) 35.8 % (10.0-50.0); Mean Corpuscular Hgb Conc. 32.7 g/dL (32.0-36.0); Mean Corpuscular Volume 79.6 fL (80.0-100.0); Monocytes # (auto) 0.5 10 ^3/uL (0-1.3); Monocytes % (auto) 7.9 % (0.0-12.0); Neutrophils % (auto) 53.8 % (37.0-80.0); Nucleated Red Blood Cells % 0.1 %; Platelet Count (auto) 191 10^3/uL (140-450); Red Cell Distribution Width 14.4 % (11.8-14.3)
[2024-11-25 06:40] LABS: Potassium 3.7 mmol/L (3.5-5.1); Sodium 141 mmol/L (136-145)
[2024-11-25 06:41] LABS: Anion Gap 7 (5-15); Calcium 8.7 mg/dL (8.7-10.4); Carbon Dioxide 24 mmol/L (20-31)
[2024-11-25 06:46] LABS: BUN/Creatinine Ratio 14.1 (10.0-20.0); Glucose 87 mg/dL (74-106)
[2024-11-25 06:50] LABS: Blood Urea Nitrogen 9 mg/dL (9-23); Chloride 110 mmol/L (98-107)
[2024-11-25 10:08] LABS: % Iron Saturation 9.8 % (15-50)
[2024-11-25 10:11] LABS: Ferritin 6.1 ng/mL (10-291)
[2024-11-25] MEDS ORDERED: IOHEXOL 300 MG/ML 100ML BOTTLE IJ ONE (10:42)
--- NOTE | 2024-11-25 11:46 | DVH ---
Exam: CT CT AB PELVIS W WO CON-IV ONLY History: Drop in hemoglobin, evaluate intrabdominal bleed Comparison Study: None available at time of dictation. Technique: Multidetector spiral CT of the abdomen and pelvis was performed from lung bases to pubic s ymphysis. Initial imaging was done without IV contrast, followed by post contrast images of the abdom en and pelvis. Intravenous contrast was administered during this examination. Noncontrast and portal venous phase imaging was obtained. Axial, coronal and sagittal multiplanar reformats were performed b y the technologist on a separate workstation. Radiation Dose : CT Dose: CTDI volume is 5.66 mGy. Dose-length product is 539.81 mGy*cm Findings: Lung Bases: No acute or significant lung base finding. Normal heart size. No pleural or pericardial effusion. Liver: The liver is normal in size. No focal lesions. Normal hepatic vascular enhancement. Gallbladder and Biliary Tree: Gallbladder is surgically absent. Spleen: Unremarkable Pancreas: The pancreas is normal in appearance without focal lesions or abnormal enhancement. Adrenal Glands: Unremarkable Kidneys: Punctate bilateral nonobstructing renal stones measuring up to 0.1 cm. Bladder: Unremarkable Bowel: The stomach is grossly normal in appearance. Small bowel and colon are normal in caliber and d istribution. The appendix is not visualized; however, no secondary findings of acute appendicitis deborah ntified. Ascites: Absent Lymphadenopathy: No mesenteric, retroperitoneal or periportal lymphadenopathy. Abdominal Wall and Mesentery: Unremarkable. Vasculature: The visualized abdominal aorta is normal in size and caliber. Abdominal and pelvic vess els demonstrate normal enhancement. Pelvic Organs: Right ovarian cyst with septation measures 2.2 cm. Musculoskeletal: No aggressive focal bony lesions, acute fractures or dislocation. IMPRESSION: No acute abdominal or pelvic finding. Radiation optimization: All CT scans at this facility use at least one of these dose optimization seamus hniques: automated exposure control mA and/or kV adjustment per patient size (includes targeted exam s where dose is matched to clinical indication) or iterative reconstruction.
[2024-11-25] MEDS: SODIUM CHLORIDE 0.9% 1,000 ML IV ONE (12:45)
--- NOTE | 2024-11-25 21:30 | DVHPNRES ---
Progress Note Date Seen: Nov 25, 2024 Resident Creating Document: BRAD WILLARD RESIDENT Medical Necessity Reason Pt with a Central, PICC or Fol: No Subjective Review of Systems Patient seen and examined at bedside. Reviewed overnight events, she was complaining of intense abdominal pain during night (approximately at 11:00 p.m.), responding to morphine. During a.m. she presented mild pain. Objective vital signs Vital Sign Date Time Temp Pulse Resp B/P (MAP) Pulse Ox O2 Delivery O2 Flow Rate FiO2 11/25/24 17:00 98.4 72 17 102/53 (69) 99 98.4 11/25/24 08:00 Room Air* 0 21 Total Intake and Output 11/24/24 11/24/24 11/25/24 15:00 23:00 07:00 Intake Total 600 ml 1700 ml Balance 600 ml 1700 ml medications Current Medications Medications Dose Ordered Sig/Alex Route Start Time Stop Time Status Last Admin Dose Admin Sodium Chloride 10 ml Q8HR IV 11/24/24 06:00 11/25/24 14:00 10 ML Acetaminophen 650 mg Q6HP PRN PO 11/23/24 22:15 11/24/24 22:22 650 MG Ceftriaxone Sodium 50 ml @ 100 mls/hr DAILY@09 IV 11/24/24 09:00 11/25/24 08:48 100 MLS/HR Sodium Chloride 1,000 ml @ 75 mls/hr [id number] IV 11/24/24 07:00 11/25/24 00:51 75 MLS/HR Ibuprofen 400 mg Q8HP PRN PO 11/25/24 09:15 Iron Sucrose 110 ml @ 110 mls/hr DAILY@1200 IV 11/26/24 12:00 11/30/24 12:59 Examination Patient lying in bed, in no acute distress General: Lucid, afebrile, mucosae are moist, pale conjunctivae Cardiovascular: Normal S1 and S2. No murmurs, gallops or rubs Respiratory: Normal ventilation mechanics. Clear lung sounds on auscultation Abdomen: Soft, nontender, no organomegaly, normal bowel sounds MSK/skin: Mobilizes 4 limbs. Skin is dry and warm : Positive costovertebral tenderness especially in right side. Neurological: Oriented in 3 spheres. No motor no sensitive deficits. Pupils are isocoric and reactive laboratory and microbiology Laboratory Tests 11/25/24 05:46 Test 11/25/24 05:46 Range/Units Serum Glucose 87 74-106 mg/dL Microbiology Date/Time Source Procedure Growth Status 11/23/24 16:11 Voided Urine Urine Culture - Preliminary Resulted Problem List/Assessment/Plan Problem List/Assessment/Plan Assessment: Acute pyelonephritis Ruled out ovarian torsion Right-sided ovarian cyst Palpitations, arrhythmia workup pending at [facility] Normocytic anemia with iron deficiency - ruled out acute bleed Plan: Repeated abdomen and pelvis CT with IV contrast, ruled out acute intra abdominal/pelvic pathology. Enlarged right ovarian cyst persists. Ruled out acute bleed (patient had decrease in hemoglobin since admission). Indicated IV iron senior it assistant specialist evaluated the patient no urgent senior it assistant management during this admission, recommended NSAIDs for pain management and oral contraceptives pills to manage pain from ovarian cyst. Indicated bolus of IV fluids to protect kidney after IV contrast, currently on maintenance IV. Under empiric IV antibiotics (ceftriaxone). Urine culture [place] 53772 units. Optimize pain management Pending sexually transmitted infection screening results. Patient refused to wear athletic monitor Goals of care discussed with patient for over 18 minutes: Full code status Discussed plan with Dr. Ruvalcaba, patient and nurses: We will monitor patient for 24 more hours, to evaluate drop in hemoglobin hematocrit. Optimize pain management. Continue with IV antibiotics. Plan discussed with: Patient, Other (Nurses) My Orders My Orders Orders - BRAD WILLARD RESIDENT Procedure Category Date Status Time RPR LAB 11/25/24 In Process 09:12 Acute Hepatitis Panel LAB 11/25/24 In Process 09:12 Stool Occult Blood LAB 11/25/24 Logged 09:13 Folate (Folic Acid) LAB 11/25/24 In Process 09:13 Haptoglobin LAB 11/25/24 In Process 09:13 Ferritin LAB 11/25/24 In Process 09:13 Ibuprofen Tablet PHA 11/25/24 In Process (Motrin Tablet) 09:15 Ct Ab Pelvis W Wo CT 11/25/24 Resulted Con-Iv Only 09:42 Iron Sucrose Complex PHA 11/26/24 In Process (Venofer) 12:00 Chlamydia/Gc LAB 11/25/24 Logged Amplification 12:49 Date of Service: Nov 25, 2024 Billing Provider: LACEY MARTINEZ MD Common Visit Codes: [id number] INP/OBS CARE(MOD) BRAD WILLARD RESIDENT Nov 25, 2024 21:30 LACEY MARTINEZ MD Nov 28, 2024 16:09
[2024-11-26] MEDS: IBUPROFEN 400 MG TAB PO PRN (00:31)
[2024-11-26 01:00] VITALS: BP 110/49; PULSE 67; RESP 17; TEMP 97.9; O2SAT 99
[2024-11-26] MEDS: MORPHINE SULFATE INJ 2 MG/ml SYRG IV ONE (03:27)
[2024-11-26 05:00] VITALS: BP 110/69; PULSE 59; RESP 18; TEMP 98.1; O2SAT 98
[2024-11-26 07:14] LABS: Basophils # (auto) 0 10 ^3/uL (0-0.2); Basophils % (auto) 0.8 % (0.0-2.0); Eosinophils # (auto) 0.1 10 ^3/uL (0-0.8); Eosinophils % (auto) 1.7 % (0.0-7.0); Hemoglobin 9.9 g/dL (12.2-16.2); Lymphocytes # (auto) 1.9 10 ^3/uL (0.4-5.4); Lymphocytes % (auto) 38.1 % (10.0-50.0); Mean Corpuscular Hgb Conc. 32.1 g/dL (32.0-36.0); Mean Corpuscular Volume 81.2 fL (80.0-100.0); Monocytes # (auto) 0.4 10 ^3/uL (0-1.3); Monocytes % (auto) 7.3 % (0.0-12.0); Neutrophils # (auto) 2.6 10 ^3/uL (1.6-8.6); Neutrophils % (auto) 52.1 % (37.0-80.0); Nucleated Red Blood Cells % 0.1 %; Platelet Count (auto) 175 10^3/uL (140-450); Red Blood Cells 3.81 10^6/uL (4.0-5.20); Red Cell Distribution Width 14.5 % (11.8-14.3)
[2024-11-26 07:27] LABS: Potassium 3.6 mmol/L (3.5-5.1); Sodium 141 mmol/L (136-145)
[2024-11-26 07:28] LABS: Anion Gap 10 (5-15); Carbon Dioxide 20 mmol/L (20-31)
[2024-11-26 07:32] LABS: Calcium 8.7 mg/dL (8.7-10.4); Chloride 111 mmol/L (98-107)
[2024-11-26 07:33] LABS: Glucose 83 mg/dL (74-106)
[2024-11-26 07:40] LABS: BUN/Creatinine Ratio 8.9 (10.0-20.0); Blood Urea Nitrogen < 5 mg/dL (9-23); CRP High Sensitivity < 0.02 mg/dL (<1.0)
[2024-11-26 08:00] VITALS: PULSE 61; RESP 18; O2SAT 98
[2024-11-26 09:00] VITALS: BP 112/35; PULSE 61; RESP 16; TEMP 98; O2SAT 98
[2024-11-26 10:07] LABS: RPR Non Reactive (Non Reactive)
[2024-11-26] MEDS ORDERED: SULF800T23 PO (11:04)
[2024-11-26] MEDS ORDERED: ZOFR4T PO (11:04)
--- NOTE | 2024-11-26 11:12 | DVHDSRES ---
Discharge Summary Date of Admission Resident Creating Document: STACEY IQBAL RESIDENT Nov 23, 2024 at 22:03 Date of Discharge: Nov 26, 2024 Admitting Diagnosis Dysuria Labs/Diagnostic Data: Laboratory Results Test 11/26/24 06:07 11/25/24 11:16 11/25/24 05:46 11/24/24 12:30 White Blood Count 5.0 10^3/uL (4.4-10.8) Red Blood Count 3.81 10^6/uL (4.0-5.20) Hemoglobin 9.9 g/dL (12.2-16.2) Hematocrit 31.0 % (36.0-46.0) Mean Corpuscular Volume 81.2 fL (80.0-100.0) Mean Corpuscular Hemoglobin 26.0 pg (28.0-32.0) Mean Corpuscular Hemoglobin Concent 32.1 g/dL (32.0-36.0) Red Cell Distribution Width 14.5 % (11.8-14.3) Platelet Count 175 10^3/uL (140-450) Mean Platelet Volume 9.2 fL (6.9-10.8) Neutrophils (%) (Auto) 52.1 % (37.0-80.0) Lymphocytes (%) (Auto) 38.1 % (10.0-50.0) Monocytes (%) (Auto) 7.3 % (0.0-12.0) Eosinophils (%) (Auto) 1.7 % (0.0-7.0) Basophils (%) (Auto) 0.8 % (0.0-2.0) Neutrophils # (Auto) 2.6 10 ^3/uL (1.6-8.6) Lymphocytes # (Auto) 1.9 10 ^3/uL (0.4-5.4) Monocytes # (Auto) 0.4 10 ^3/uL (0-1.3) Eosinophils # (Auto) 0.1 10 ^3/uL (0-0.8) Basophils # (Auto) 0 10 ^3/uL (0-0.2) Nucleated Red Blood Cells 0.1 % Sodium Level 141 mmol/L (136-145) Potassium Level 3.6 mmol/L (3.5-5.1) Chloride Level 111 mmol/L (98-107) Carbon Dioxide Level 20 mmol/L (20-31) Anion Gap 10 (5-15) Blood Urea Nitrogen < 5 mg/dL (9-23) Creatinine 0.56 mg/dL (0.550-1.02) Glomerular Filtration Rate Calc 122 mL/min (>90) BUN/Creatinine Ratio 8.9 (10.0-20.0) Serum Glucose 83 mg/dL (74-106) Calcium Level 8.7 mg/dL (8.7-10.4) C-Reactive Protein High Sensitivity < 0.02 mg/dL (<1.0) Rapid Plasma Reagin Non reactive (Non Reactive) Reticulocyte Count (auto) 1.46 % (0.5-1.5) Iron Level 28 ug/dL (50-170) Total Iron Binding Capacity 287 ug/dL (250-425) Percent Iron Saturation 9.8 % (15-50) Ferritin 6.1 ng/mL (10-291) HIV (1&2) Antibody Negative (Negative) Influenza Type A Antigen Negative (Negative) Influenza Type B Antigen Negative (Negative) SARS-CoV-2 Antigen (Rapid) Negative (NEGATIVE) Test 11/24/24 03:40 11/23/24 16:30 11/23/24 16:11 Total Bilirubin 0.4 mg/dL (0.2-1.0) Aspartate Amino Transferase (AST) < 8 U/L (13-40) Alanine Aminotransferase (ALT) 12 U/L (7-40) Alkaline Phosphatase 47 U/L (46-116) Total Protein 6.3 g/dL (5.7-8.2) Albumin 4.5 g/dL (3.2-4.8) Lactic Acid Level 0.8 mmol/L (0.4-2.0) Magnesium Level 2.0 mg/dL (1.6-2.6) Troponin I High Sensitivity < 3 ng/L (</=34) Lipase 40 U/L (12-53) Thyroid Stimulating Hormone (TSH) 0.92 uIU/mL (0.55-4.78) Urine Color Colorless (Yellow) Urine Clarity Clear (Clear) Urine pH 5.5 (5.0-9.0) Urine Specific [place] 1.012 (1.001-1.035) Urine Protein Negative (Negative) Urine Ketones Negative (Negative) Urine Blood Negative /uL (Negative) Urine Nitrite Negative (Negative) Urine Bilirubin Negative (Negative) Urine Urobilinogen Normal mg/dL (Negative) Urine Leukocyte Esterase 1+ /uL (Negative) Urine RBC 1 /hpf (0 - 4) Urine Microscopic WBC 5 /HPF (0-5) Urine Squamous Epithelial Cells Few /hpf (<5) Urine Bacteria Few /hpf (None Seen) Urine Glucose Normal mg/dL (Normal) Urine Test Negative (Negative) Urine Opiates Screen Neg (NEGATIVE) Urine Fentanyl Screen Neg (NEGATIVE) Urine Barbiturates Screen Neg (NEGATIVE) Urine Phencyclidine Screen Neg (NEGATIVE) Urine Amphetamines Screen Neg (NEGATIVE) Urine Benzodiazepines Screen Neg (NEGATIVE) Urine Cocaine Screen Neg (NEGATIVE) Urine Cannabinoids Screen Neg (NEGATIVE) Other Laboratory Tests 11/26/24 06:07 Brief Hx & Hospital Course: Patient is a 34-year-old female with past medical history of fibromyalgia who came in due to dysuria. According to the patient, for the last 3 weeks she has been having dysuria and right flank pain which he describes as intermittent, sharp and 7/10. She localizes the pain at the time of my evaluation to midepigastric region with radiation to the right flank and right thigh. Patient also notes having recurrent UTIs in the past. Patient's last menstrual period was 11/12/2024, patient notes that she is currently not sexually active, last sexual activity was in 2017. Of note, patient states having palpitations and recently had a cook chili placed for 1 week by [facility], the results of which patient is not aware of. Hospital course: CT abdomen pelvis showed enlarged right ovarian prominent right ovarian cyst. Follow-up ultrasound examination MRI examination sister further assessment. Pelvic ultrasound showed grossly unremarkable pelvic ultrasound with no sonographic evidence of right ovarian torsion. Patient was started on IV NS at 75 cc/hour along with IV ceftriaxone which she received for 4 days. STI testing was ordered for the patient and statement services representative were also consulted for her right-sided ovarian cyst. statement services representative recommended outpatient follow up for pelvic exam and Pap smear, physiologic simple cyst no intervention needed. On the day of discharge, patient appeared well and had stable vital signs, patient stated she would like to go home at the earliest possible. Patient was sent TMP-SMX twice a day for 3 days as well as Zofran as needed for 3 days. Her hospital course was uncomplicated. General Appearance: Cooperative. Well developed. Well nourished. In mild distress, having severe chills at the time of my assessment Head Exam: Normal inspection Neck Exam: Normal inspection. Non-tender. Normal alignment Pulmonary/Respiratory: Chest non-tender. Clear bilateral breath sounds, no crackles, no wheezing. Cardiovascular/Chest: Regular rate and rhythm. No murmurs. No JVD. Peripheral Pulses: 2+ Radial (R). 2+ Radial (L). 2+ Pedal (R). 2+ Pedal (L) Abdominal Exam: Normal bowel sounds. Soft. Left flank tenderness to palpation, no visible veins, Nontender. No hepatospenomegaly. No masses Ankle Exam: Negative ankle edema Lower extremities: Negative lower extremity edema Neuro/Mental Status: A&O x4. Coherent. Thoughts/Psych: Normal thought pattern. Appropriate mood and affect. Good judgement and insight Skin Exam: Normal inspection. Normal color. Warm. Dry Consults/Reason for consult statement services representative: Right-sided ovarian cyst Condition at Discharge: Fair Final Diagnosis/Problems List Acute pyelonephritis Ruled out ovarian torsion Right-sided ovarian cyst Palpitations, erythema workup pending at [facility] Discharge Disposition: Home Discharge Instruct/Medications Diet: Regular Activity: No Restrictions, As Tolerated Follow Up/Referral: Please follow up with statement services representative in the outpatient clinic for pelvic exam and Pap smear Please follow up with PCP in 1-2 weeks Please follow up in the discharge clinic Medications: Trimethoprim-sulfamethoxazole twice a day for 3 days Zofran as needed for nausea for 3 days Discharge Statement: "Patient was advised to return to the ER or call 911 if any headaches, dizziness, shortness of breath, chest pain, abdominal pain, bleeding, fevers, or worsening of medical condition. Patient was counseled about treatment plan, medications, possible side effects, patientverbalized understanding. All questions were answered to the best of my ability. This discharge took greater then 30 minutes in planning, reviewing documentation, counseling the patient, and discussing with other team members." ASSESSMENT ASSESSMENT Assessment Acute pyelonephritis Ruled out ovarian torsion Right-sided ovarian cyst Palpitations, erythema workup pending at [facility] Date of Service: Nov 26, 2024 Billing Provider: LACEY MARTINEZ MD Common Visit Codes: 26264-YVM/OBS DISCH DAY >30min STACEY IQBAL Nov 26, 2024 11:12 LACEY MARTINEZ MD Nov 28, 2024 16:10
[2024-11-26] MEDS: IRON SUCROSE COMPLEX 110 ML IV SCH (12:00)
[2024-11-26 13:00] VITALS: BP 103/54; PULSE 62; RESP 18; TEMP 97.9; O2SAT 99
[2024-11-26 13:14] VITALS: BP 103/54; PULSE 62; RESP 18; TEMP 97.9; O2SAT 98
[2024-11-27 10:40] LABS: Hepatitis A Ab IgM Negative; Hepatitis B Core IgM Negative (Negative); Hepatitis B Surface Antigen Negative (Negative); Hepatitis C Antibody Negative (Negative)
[2024-11-27 11:07] LABS: Folate (Folic Acid) 7.62 ng/mL (>5.38)
== END 2024-11-26 13:45 | disposition home or self-care (01) | DRG 463 ==
LOC: ER 15:49 → OVERFLOW 22:03 → EAST 11-24 15:09 → TELE-EAST 11-24 15:21
PROVIDERS: ADMIT Student in an Organized Health Care Education/Training Program; ATTEND Emergency Medicine
DX: N10 Acute pyelonephritis (principal); D50.9 Iron deficiency anemia, unspecified; N83.291 Other ovarian cyst, right side; F41.9 Anxiety disorder, unspecified; M79.7 Fibromyalgia; G89.29 Other chronic pain; Z87.442 Personal history of urinary calculi; Z98.891 History of uterine scar from previous surgery; Z79.2 Long term (current) use of antibiotics; Z79.899 Other long term (current) drug therapy; Z90.49 Acquired absence of other specified parts of digestive tract; Z79.1 Long term (current) use of non-steroidal anti-inflammatories (NSAID); Z90.721 Acquired absence of ovaries, unilateral
CPT/HCPCS: 36415; 74177; 74178; 76830; 76856; 80048; 80053; 80074; 80307; 81001; 81025; 82728; 82746; 83010; 83540; 83550; 83605; 83690; 83735; 84443; 84484; 85025; 85045; 86141; 86592; 86703; 87086; 87426; 87804; 96365; 96375; 99291; G0378; J1885